=== PATIENT | male | born 1955 | race Caucasian/White ===

== ENCOUNTER 2019-08-11 12:22 | Emergency (ER) | payer OTHER ==
--- OUTSIDE RECORDS SUMMARY | 2019-08-11 12:24 | XMS REPORT | Continuity of Care Document ---
:1955 Author Organization [facility] Address [address] [place] [address] Allergies, Adverse Reactions, Alerts Allergen Type Severity Reaction Last Updated Verified Status No Known Allergies Allergy Unknown November 26, 2014 No Active Medications Medication Status Dose Units Route Sig Qty Days Start End Instructions Date Date Apixaban Discontin 5 ORAL Twice 60 April ued A Day , for Pe 2018 2018 4:33pm Arformoterol Discontin 1 RESPIRAT Twice 120 April Tartrate ued ORY A Day , (INHALAT for 2018 2018 ION) Copd 4:39pm Aspirin Active 81 ORAL Daily Levothyroxine Active 112 ORAL Daily Sodium Metoprolol Active 50 ORAL Once Succinate Daily Pantoprazole Discontin 40 ORAL Before April Sodium ued Breakf , ast 2018 2018 for 4:39pm Gerd Tiotropium Discontinued 1 RESPIRATORY Daily for May 09, [place] (INHALATION) Copd 2018 4:39pm (One-Time) Albuterol Discontinued 3 RESPIRATORY Rt-Every June Sulf/Ipratropium * (INHALATION) Hours As , , Needed as 2012 2014 needed for 1:25pm Shortness Of Breath Methylprednisolone Discontinued 1 ORAL As Directed 11 JuneNovember 25, 2012 1:25pm Pravastatin * Discontinued 20 ORAL Daily May 07, 2019 Salmeterol Discontinued 0 RESPIRATORY Twice A Day June Xinafoate/Fluticason (INHALATION) , , 2012 1:25pm Problems Active Problems Medical Problem Onset Date Status Acute respiratory failure Active CAD (coronary artery disease) Active CHF (congestive heart failure) Active COPD (chronic obstructive pulmonary disease) Active COPD exacerbation Active Congestive heart failure Active Dyspnea Active Embedded foreign body Active Emphysema (subcutaneous) (surgical) resulting from a procedure Active Emphysema of lung Active HLD (hyperlipidemia) Active HTN (hypertension) Active Hypothyroidism Active [id number] Active [id number] Active [id number] Active Influenza A Active Left eye pain Active Left eye pain Active Tobacco abuse Active Inactive/Resolved Problems Medical Problem Onset Date Status Bronchitis Resolved Deep vein thrombosis (DVT) of popliteal vein of right Resolved lowerextremity Pulmonary embolism Resolved Unilateral edema of lower extremity Resolved Procedures Procedure Date Performed Status X-ray of chest, single view May 06, 2019 completed Computed tomography angiography of chest for pulmonary May 06, 2019 completed embolism Computed tomography of abdomen and pelvis with contrast May 08, 2019 completed Relevant Diagnostic Tests and/or Laboratory Data Laboratory Results Test Date/Time Result Interpretation Reference Result Comment Performing Range Site White Blood April 6.8 4.0-12.3 [facility], [address] Count 2018 3:[address] [place] [address] Red Blood Count April 4.49 3.80-5.80 [facility], [address] 2018 3:[address] [place], [place] [id number] Hemoglobin April 14.1 11.7-17.2 [facility] [address] 2018 3:[address] [place] [address] Hematocrit April 42.5 35.0-51.0 [facility], [address] 2018 3:[address] [place], [place] [id number] Mean April 94.7 83-100 [facility], [address] Corpuscular 2018 Volume 3:[address] [place], [place] [id number] Mean April 31.4 26.8-33.4 [facility], [address] Corpuscular 2018 Hemoglobin 3:[address] [place], [place] [id number] Mean April 33.2 30-35 [facility], [address] Corpuscular 2018 Hemoglobin 3:[address] [place] [address] Concent Red Cell April 12.6 12.0-14.0 [facility], [address] Distribution 2018 Width 3:[address] [place] [address]37[address] Platelet Count April 228 175-450 [facility], [address] 2018 3:[address] [place] [address] Mean Platelet April 9.0 9.4-12.6 [facility], [address] Volume 2018 3:[address] [place] [address] Neutrophils (%) April 56.3 44.7-82.4 [facility] [address] (Auto) 2018 3:[address] [place] [address] Immature October 0.1 0.0-0.4 [facility], [address] Granulocyte % 2018 (Auto) 3:[address] [place], [place] [id number] Lymphocytes (%) April 31.0 10.0-50.0 [facility], [address] (Auto) 2018 3:[address] [place], [place] [id number] Monocytes (%) April 9.4 3.9-13.4 [facility], [address] (Auto) 2018 3:[address] [place], [place] [id number] Eosinophils (%) October 2.9 0.0-6.4 [facility], [address] [facility] (Auto) 2018 3:[address] [place], [place] [id number] Basophils (%) October 0.3 0.2-1.2 [facility], [address] [facility] (Auto) 2018 3:[address] [place], [place] [id number] Neutrophils # October 3.82 1.78-5.38 [facility], [address] [facility] (Auto) 2018 3:[address] [place], [place] [id number] Absolute October 0.0 0.0-0.03 [facility], [address] [facility] Immature 2018 Granulocyte 3:[address] [place], [place] [id number] (auto Lymphocytes # October 2.1 1.32-3.57 [facility], [address] (Auto) 2018 3:[address] [place], [place] [id number] Monocytes # October 0.64 0.30-0.82 [facility], [address] [facility] (Auto) 2018 3:[address] [place], [place] [id number] Eosinophils # April 0.20 0.04-0.54 [facility], [address] [facility] (Auto) 2018 3:[address] [place], [place] [id number] Basophils # October 0.02 0.01-0.08 [facility], [address] [facility] (Auto) 2018 3:[address] [place] [address] Nucleated Red October 0 0-0.2 [facility], [address] Blood Cells % 2018 3:[address] [place], [place] [id number] Nucleated Red October 0 0 [facility], [address] [facility] Blood Cells # 2018 3:[address] [place], [place] [id number] D-Dimer April 2833 <500 Results have been [facility], [address] [facility] [address] 2018 broadcasted to 7:30pm patient's [place] [address] location and called to (JAJA). By MARCELLE MG 05/06/19 @2051 Prothrombin April 20.0 10.3-12.[address] Time 2018 LEVEL: 1.5 to 4:56pm 1.9 times normal [place] [address] range of PT Prothromb Time April 1.[address] International 2018 therapeutic range Ratio 4:56pm for patients [place] [address] receiving warfarin (coumadin) therapy: INR is 2.0 to 3.0Recommended range for patients with mechanical prosthetic heart valves: INR is 2.5 to 3.5 Activated April 29.6 22.5-37.0 [facility], [address] [place] [address] Partial 2018 Thromboplast 7:30pm [place] [address] Time Random Glucose April 99 82-115 [facility], [address] [place] [address] 2018 3:46am [place] [address] Blood Urea April 14 8-23 [facility], [address] [place] [address] Nitrogen 2018 3:46am [place] [address] Serum April 282 280-300 [facility], [address] [place] [address] Osmolality 2018 3:46am [place] [address] Creatinine April 0.7 0.70-1.20 [facility], [address] [place] [address] 2018 3:46[place] [address] Glomerular April > 60.00 GFR RESULTS ARE [address] Filtration Rate 2018 REPORTED IN Calc 3:46am mL/min/1.73m2.Nor [place] [address] mal GFR: >60mL/minModerate ly decreased GFR: 30-59 mL/minSeverely decreased GFR: 15-29 mL/minKidney Failure (or Dialysis): <15 mL/minThe calculated eGFR is not valid for patients younger than 18 years or older than 75 years. BUN/Creatinine April 20.0 12-20 [facility], [facility] 7TH Ratio 2018 3:46am [place] [id number] Sodium Level April 141 135-145 [facility], [address] [place] [address] 2018 3:46am [place] [id number] Potassium Level April 3.5 3.5-5.2 [facility], [address] [place] [address] 2018 3:46am [place] [address] Chloride Level April 102 98-108 [facility], [address] [facility] 2018 3:[address] [place] [address] Carbon Dioxide April 30 21-32 [facility], [address] [facility] Level 2018 3:[address] [place] [address] Anion Gap April 12.5 12-20 [facility], [address] [facility] 2018 3:[address] [place] [address] Calcium Level April 9.0 8.8-10.2 [facility], [address] [facility] 2018 3:[address] [place] [address] Magnesium Level April 2.1 1.6-2.4 [facility], [address] [facility] 2018 7:43pm [facility] [address] Total Protein April 6.3 6.6-8.7 [facility], [address] [facility] 2018 3:[address] [place], [place] [id number] Albumin April 3.5 3.5-5.2 [facility], [address] [facility] 2018 3:[address] [place], [place] [id number] Globulin April 2.8 [facility], [address] [facility] 2018 3:[address] [place], [place] [id number] Albumin/Globuli April 1.3 >1.0 [facility], [address] [facility] n Ratio 2018 3:[address] [place], [place] [id number] Total Bilirubin April 0.4 0.0-1.2 [facility], [address] [facility] 2018 3:[address] [place], [place] [id number] Aspartate Amino April 18 15-40 [facility], [address] [facility] Transf 2018 (AST/SGOT) 3:[address] [place] [address] Alanine April 20 0-41 [facility], [address] [facility] Aminotransferas 2018 e (ALT/SGPT) 3:[address] [place] [address] JJ-Hqf-N-Type April 206 0-125 [facility], [address] [facility] Natriuretic 2018 Peptide 3:[address] [place] [address]46 Prostate April 1.40 0.0-4.00 [facility], [address] [facility] Specific 2018 Antigen Total 9:30[place] [id number] Total Alkaline April 74 40-130 [facility], [address] [facility] Phosphatase 2018 3:[address] [place], [place] [id number] Cholesterol April 155 150-200 [facility], [address] [facility] Level 2018 3:[address] [place], [place] [id number] Triglycerides October 124 <150 [facility], [address] [facility] Level 2018 3:34am [facility] [address] HDL Cholesterol April 41 >55 HDL EXPECTED [facility], [address] [place] [address] 2018 VALUES:FEMALES: 3:34am >65 mg/dL NO [facility] [address] RISK 45-65 mg/dL MODERATE RISK <45 mg/dL HIGH RISKMALES: >55 mg/dL NO RISK 35-55 mg/dL MODERATE RISK <35 mg/dL HIGH RISK LDL Cholesterol April 95 <100 LDL Expected [address] 2018 Values:Optimal 3:34am <100 mg/dLNear [facility] [address] optimal/above optimal 100-129 mg/dLBorderline high 130-159 mg/dLHigh 160-189 mg/dLVery high >190 mg/dL Coronary Heart April 3.[address] Disease Risk 2018 NATIONAL Ratio 3:34am CHOLESTEROL [facility] [address] GUIDELINES NATIONAL HE[facility], [facility] (N[facility]) guidelines for classificaton, testing and management of cholesterol levels in adults over 20 years of age. This new classification creates three categories of risk for coronary heart disease, regardless of age or sex, according to total and LDL cholesterols levels: Based on total cholesterol levelDesirable <200 mg/dlBorderline-h igh 200-239 mg/dlHigh >=240 mg/dl Based on cholesterol ratioCHD RISK CHOL/HDL RATIO MALE FEMALE0.5 x Average 3.4 3.31.0 x Average 5.0 4.42.0 x Average 9.6 7.13.0 x Average 13.5 11.0 Thyroid April 4.39 0.36-3.[address] Stimulating 2018 Hormone (TSH) 3:34am [facility] [address] CA 19-9 Antigen April 27 0-35 [facility] A# [id number], [address] [facility], [address] 2018 Electrochemilumin 9:53[facility] [address] Immunoassay(ECLIA )Values obtained with different assay methods or kits cannotbe used interchangeably. Results cannot be interpreted asabsolute evidence of the presence or absence of malignantdisease. Performed at: [employer] [facility] [address] [place], [place] [id number] Director: Nino Parisi MD, Phone: [phone] Creatine Kinase April-200 [facility]2018 7:43pm [facility] [address] Troponin I April < 0.30 0.0-0.5 Published [facility] 2018 clinical studies 7:43pm have shown [place] [address] elevations of cTnI in patients with myocardial injury, as seen in unstable angina pectoris, cardiac contusions, and heart transplants. Elevations have also been seen in patients with rhabdomyolysis and polymyositis.Elev ated troponin levels point to myocardial injury, but are not necessarily indicative of an ischemic mechanism. The term SC should be used when there is evidence of cardiac damage, as detected by marker proteins in a clinical setting consistent with myocardial ischemia. If the clinical circumstance suggests that an ischemic mechanism is unlikely, other causes of cardiac injury should be considered.For diagnostic purposes, the results should always be assessed in conjunction with the patient's medical history, clinical examination and other findings. Creatine Kinase April 2.6 0.0-3.6 DIAGNOSTIC 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 LUNGS: Lungs are hyperinflated. No consolidations. Central pulmonary vascular prominence. Mild bilateral central bronchial wall thickening. PLEURA: No pleural effusion or pneumothorax. HEART AND MEDIASTINUM: The cardiomediastinal silhouette is unremarkable. BONES AND SOFT TISSUES: No acute osseous lesion. Soft tissues are unremarkable. Degenerative changes in the spine. UPPER ABDOMEN: No free air under the diaphragm. IMPRESSION: Pulmonary vascular congestion. Pulmonary findings of emphysema and mild bronchitis. 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 Thin section reconstructions were obtained with special concentration on the pulmonary arteries. Coronal and sagittal reformations were obtained. Pulmonary embolism protocol was performed. IV CONTRAST: 100 mL of Isovue 370 COMPLICATIONS: None RADIATION DOSE: Total DLP: 411 mGy*cm Estimated effective dose: (DLP x 0.014 x size factor) mSv CTDIvol has been reviewed. It is below the limits set by the Radiation Protocol Committee (RPC). Dose modulation, iterative reconstruction, and/or weight based adjustment of the mA/kV was utilized to reduce the radiation dose to as low as reasonably achievable. FINDINGS: LINES/ TUBES: None. LUNGS AND AIRWAYS: Acute nonocclusive filling defect in the distal aspect of the right lower lobar pulmonary artery saddling the bifurcation of right basilar segmental pulmonary arterial branches. Large right apical bulla and additional blebs. Upper lobe predominant centrilobular emphysematous changes. Left apical scarring. Focal scarring/atelectasis in the medial aspect of the right middle lobe. Mild central airway thickening. An 8 mm groundglass opacity/nodule in the right middle lobe (series 3 image 49). PLEURA: The pleural spaces are clear. HEART AND MEDIASTINUM: The thyroid gland is normal. No mediastinal, hilar or axillary lymphadenopathy. The heart is normal in size. There is no pericardial effusion. Left main, anterior descending, and circumflex coronary artery calcifications. Soft and calcific atherosclerotic plaques along the aortic arch and descending thoracic aorta and upper abdominal aorta, with nonstenotic atherosclerotic calcifications in the major arterial branches. Main pulmonary artery measures 2.5 cm in diameter and the ascending aorta measures 3.8 cm. UPPER ABDOMEN: Small sliding hiatal hernia. A 3 cm round hypodensity in the right adrenal gland, internal density measures -7 Hounsfield units, is consistent with a either a benign adrenal cyst or a benign lipid rich adrenal adenoma. BONES: Degenerative changes in the spine. The visualized bony thorax is within normal limits. SOFT TISSUES: Unremarkable. IMPRESSION: 1. Nonocclusive pulmonary embolus in the distal aspect of the right lower lobar pulmonary artery saddling the bifurcation of right basilar segmental pulmonary arterial branches. 2. An indeterminate 8 mm ground glass nodule in the right middle lobe could be due to infection/inflammation however adenomatous hyperplasia/neoplasia also a consideration. Recommend follow-up chest CT in 3 months. 3. Left main, anterior descending, and circumflex coronary artery calcific atherosclerosis. 4. Findings of pulmonary emphysema and bronchitis with right apical bulla and blebs. Findings discussed with Dr. Mart at 9:57 PM on 05/06/[address] Miller via telephone. Signed by: Harry Miller DO on 05/06/2019 10:10 PM Transcribed By: [employer] SYSTEM[employer] SIGNED <electronically signed by Harry Miller DO> 09 12 Harry Miller DO Health Concerns No known health concerns documented Advance Directives Advance Directive Response Recorded Date/Time Advance Directives No November 26, 2014 2:07pm Advance Directive on File No May 07, 2019 12:21am Directive to Physicians/Living Will No November 26, 2014 2:07pm Health Care Proxy No November 26, 2014 2:07pm Organ Donor No November 26, 2014 2:07pm Medical Power of Tetryl Screen Operator No November 26, 2014 2:07pm Patient/Family Given Education Material R/T Yes May 07, 2019 12:21am Directives? Chief Complaint and Reason for Visit Chief Complaint BRONCHITIS,COPD EXACERBATION,PE,LOWER LED EDEMA Reason for Visit COPD exacerbation CAD (coronary artery disease) Acute respiratory failure COPD (chronic obstructive pulmonary disease) CHF (congestive heart failure) CAD (coronary artery disease) HLD (hyperlipidemia) HTN (hypertension) Hypothyroidism Emphysema (subcutaneous) (surgical) resulting from a procedure CHF (congestive heart failure) COPD (chronic obstructive pulmonary disease) Tobacco abuse Emphysema of lung Encounters Encounter Location(s) Arrival/Admit Date Discharge/Depart Date Provider(s) Discharged [place] May 06, 2019 May 09, 2019 [facility] 10:38pm 6:16pm Ctr Recent Diagnosis Onset Date COPD exacerbation CAD (coronary artery disease) Acute respiratory failure COPD (chronic obstructive pulmonary disease) CHF (congestive heart failure) CAD (coronary artery disease) HLD (hyperlipidemia) HTN (hypertension) Hypothyroidism Emphysema (subcutaneous) (surgical) resulting from a procedure CHF (congestive heart failure) COPD (chronic obstructive pulmonary disease) Tobacco abuse Emphysema of lung Assessments Diagnosis Onset Date Resolution Status COPD exacerbation Active CAD (coronary artery disease) Active Acute respiratory failure Active COPD (chronic obstructive pulmonary disease) Active CHF (congestive heart failure) Active CAD (coronary artery disease) Active HLD (hyperlipidemia) Active HTN (hypertension) Active Hypothyroidism Active Emphysema (subcutaneous) (surgical) resulting from a Active procedure CHF (congestive heart failure) Active COPD (chronic obstructive pulmonary disease) Active Tobacco abuse Active Emphysema of lung Active Functional Status No Functional Status information available Goals No Goals Information Available Immunizations No Immunization Information Available Mental Status No Mental Status Information Available Medical Equipment No Medical Equipment Information available Insurance Providers Guarantor Lyssa Mitchell Address [address] [address] Contact Info. Home Phone: Payer Policy Id Coverage Id Subscriber's Subscriber Effective Expiration Name Id Date Date Visn 16 [id number] Lyssa Mitchell [id number] Consolidated A Fee Unit Plan of Treatment Please call and set up and outpatient follow-up appointment with your pcp and or pulmonology for radiological finding: An indeterminate 8 mm ground glass nodule in the right middle lobe could be due to infection/inflammation however adenomatous hyperplasia/neoplasia also a consideration. Recommend follow-up chest CT in 3 months. Future Tests Future scheduled test information is unavailable Pending Tests Pending diagnostic test information is unavailable Future Visits Future appointment information is unavailable Referrals to Other Providers Referral information is unavailable Future Procedures Future procedure information is unavailable Future Medications Future medication information is unavailable Patient Instructions Arformoterol nebulizer solution Chronic Obstructive Pulmonary Disease Exacerbation, [id number] Coronary Artery Disease, Male Tiotropium inhalation powder Pantoprazole tablets Apixaban oral tablets Deep Vein Thrombosis Social History Smoking Status Status Date of Observation Ex-smoker (finding) May 07, 2019 12:21am Observation Status Observation Response Date of Response Hx Physical Abuse No May 07, 2019 12:48am Assigned Sex Male Vital Signs Vital Reading Result Collection Date/Time Hospital Discharge Instructions Additional Instructions Instructions Physician Documentation [place] follow up instructions * If you have any questions or concerns, please contact [phone] and ask for the hospitalist on duty. If you are having a medical emergency, please report to the nearest emergency room in your area. * Access your patient portal or follow up with your PCP regarding any procedures or tests that have not yet been resulted. Follow up with: cook ice cream, PCP, mill hand Follow up appointment in: 7 days Activity on discharge: fall precautions Diet on discharge: cardiac Condition on discharge: stable
[2019-08-11 13:47] LABS: Basophils % 0.2 % (0-1.3); Hematocrit 46.4 % (39.6-49.0); Lymphocytes % 26.2 % (15.3-44.8); MPV 7.4 fL (7.6-11.3); RBC Red Blood Cell Count 4.97 M/uL (4.33-5.43)
[2019-08-11 14:06] LABS: BUN Blood Urea Nitrogen 28 mg/dL (7-18); Bicarbonate 32 mmol/L (21-32); Glucose Level 91 mg/dL (74-106); Potassium 4.1 mmol/L (3.5-5.1); Sodium Level 141 mmol/L (136-145); Troponin (Emerg Dept Use Only) < 0.02 ng/mL (0.0-0.045)
--- NOTE | 2019-08-11 14:11 | EDPHYS ---
Physician Documentation [facility] Name: Valdez Mandujano Age: 63 yrs Sex: Male : 1955 Arrival Date: 08/11/2019 Time: 12:25 Bed 9 Private MD: ED Physician Vamsi Mtz HPI: 08/11 12:48 This 63 yrs old Male presents to ER via Ambulatory with complaints of High jmm Blood Pressure. 12:48 The patient has elevated blood pressure [facility] Onset: The jmm symptoms/episode began/occurred at an unknown time. Modifying factors: The symptoms are aggravated by. This is a 63 year old male with a history of dvt that presents to the ED after [facility] revealed his [facility] to be elevated. Patient has no complaints of CP, PERSON, abdominal pain, shortness of breath. The patient currently takes metoprolol and was just prescribed a 2nd BP medication. . Historical: - Allergies: 12:33 No Known Allergies; sg - Home Meds: 12:33 Metoprolol Tartrate Oral [Active]; Plavix Oral [Active]; sg - PMHx: 12:33 DVT; sg - Immunization history:: Adult Immunizations up to date. - Coronavirus screen:: The patient has NOT traveled to [place], [place], or [place] in the past 14 days. The patient has NOT had contact with known/suspected case of Coronavirus?. - Social history:: Smoking status: Patient denies any tobacco usage or history of. - Ebola Screening: : Patient negative for fever greater than or equal to 101.5 degrees Fahrenheit, and additional compatible Ebola Virus Disease symptoms Patient denies exposure to infectious person Patient denies travel to an Ebola-affected area in the 21 days before illness onset No symptoms or risks identified at this time. ROS: 12:48 Constitutional: Negative for fever, chills, and weight loss, Cardiovascular: Negative jmm for chest pain, palpitations, and edema, Respiratory: Negative for shortness of breath, cough, wheezing, and pleuritic chest pain, Abdomen/GI: Negative for abdominal pain, nausea, vomiting, diarrhea, and constipation, Back: Negative for injury and pain, MS/Extremity: Negative for injury and deformity, Neuro: Negative for headache, weakness, numbness, tingling, and seizure. 12:48 All other systems are negative. Exam: 12:48 Constitutional: This is a well developed, well nourished patient who is awake, alert, jmm and in no acute distress. Head/Face: atraumatic. Eyes: EOMI, no conjunctival erythema appreciated ENT: Moist Mucus Membranes Neck: Trachea midline, Supple Chest/axilla: Normal chest wall appearance and motion. Cardiovascular: Regular rate and rhythm. No edema appreciated Respiratory: Normal respirations, no respiratory distress appreciated Abdomen/GI: Non distended, soft Back: Normal ROM Skin: General appearance color normal MS/ Extremity: Moves all extremities, no obvious deformities appreciated, no edema noted to the lower extremities Neuro: Awake and alert, normal gait Psych: Behavior is normal, Mood is normal, Patient is cooperative and pleasant Vital Signs: 12:30 BP 161 / 98; Pulse 74; Resp 17; Temp 98.2; Pulse Ox 100% on R/A; Pain 0/10; sg 13:30 BP 171 / 92; Pulse 72; Resp 14; Pulse Ox 100% on R/A; Pain 0/10; ls4 14:20 BP 168 / 84; Pulse 71; Resp 14; Temp 98.1; Pulse Ox 100% on R/A; Pain 0/10; ls4 MDM: 12:41 Patient medically screened. [facility] 14:08 Data reviewed: vital signs, nurses notes. Counseling: I had a detailed discussion with [facility] the patient and/or guardian regarding: the historical points, exam findings, and any diagnostic results supporting the discharge/admit diagnosis, lab results, the need for outpatient follow up, to return to the emergency department if symptoms worsen or persist or if there are any questions or concerns that arise at home. ED course: Patient is asymptomatic. Labs WNL. Advised to follow up with pcp for reevaluation. . 08/11 12:42 Order name: CBC with Diff; Complete Time: 14:02 [facility] 08/11 12:42 Order name: BMP; Complete Time: 14:07 [facility] 08/11 12:42 Order name: Troponin (emerg Dept Use Only); Complete Time: 14:07 [facility] 08/11 12:42 Order name: EKG - Nurse/Tech; Complete Time: 13:08 [facility] 08/11 12:42 Order name: Urine Dipstick-Ancillary (obtain specimen); Complete Time: 13:09 [facility] Administered Medications: No medications were administered Disposition: 14:35 Co-signature as Attending Physician, Vamsi Mtz MD. rn Disposition: 08/11/19 14:10 Discharged to Home. Impression: Elevated Blood Pressure. - Condition is Stable. - Discharge Instructions: Hypertension. - Medication Reconciliation Form, Thank You Letter, Antibiotic Education, Prescription Opioid Use form. - Follow up: Private Physician; When: 2 - 3 days; Reason: Recheck today's complaints, Continuance of care, Re-evaluation by your physician. Signatures: Dispatcher [employer] EDManohar Arrington RN RN Joe Heath PA PA jmm Nieto, Roman, MD MD rn Stewart, Lisa, RN RN ls4 Corrections: (The following items were deleted from the chart) 14:25 14:10 08/11/2019 14:10 Discharged to Home. Impression: Elevated Blood Pressure. ls4 Condition is Stable. Forms are Medication Reconciliation Form, Thank You Letter, Antibiotic Education, Prescription Opioid Use. Follow up: Private Physician; When: 2 - 3 days; Reason: Recheck today's complaints, Continuance of care, Re-evaluation by your physician. dwaine
--- NOTE | 2019-08-11 14:11 | ER ---
Nurse's Notes [facility] Name: Valdez Mandujano Age: 63 yrs Sex: Male : 1955 Arrival Date: 08/11/2019 Time: 12:25 Bed 9 Private MD: Diagnosis: Elevated Blood Pressure Presentation: 08/11 12:30 Presenting complaint: Patient states: [facility], when they sg said my BP was too high and I had to come to the ER for evaluation. Transition of care: patient was not received from another setting of care. Onset of symptoms was August 11, 2019. Risk Assessment: Do you want to hurt yourself or someone else? Patient reports no desire to harm self or others. Initial Sepsis Screen: Does the patient meet any 2 criteria? No. Patient's initial sepsis screen is negative. Does the patient have a suspected source of infection? No. Patient's initial sepsis screen is negative. Care prior to arrival: None. 12:30 Method Of Arrival: Ambulatory sg 12:30 Acuity: REVA 3 sg Triage Assessment: 12:30 General: Appears in no apparent distress. comfortable, Behavior is calm, cooperative. ls4 Pain: Denies pain. Neuro: No deficits noted. Cardiovascular: No deficits noted. Respiratory: No deficits noted. GI: No deficits noted. : No deficits noted. Derm: No deficits noted. Musculoskeletal: No deficits noted. Historical: - Allergies: 12:33 No Known Allergies; sg - Home Meds: 12:33 Metoprolol Tartrate Oral [Active]; Plavix Oral [Active]; sg - PMHx: 12:33 DVT; sg - Immunization history:: Adult Immunizations up to date. - Coronavirus screen:: The patient has NOT traveled to [place], [place], or [place] in the past 14 days. The patient has NOT had contact with known/suspected case of Coronavirus?. - Social history:: Smoking status: Patient denies any tobacco usage or history of. - Ebola Screening: : Patient negative for fever greater than or equal to 101.5 degrees Fahrenheit, and additional compatible Ebola Virus Disease symptoms Patient denies exposure to infectious person Patient denies travel to an Ebola-affected area in the 21 days before illness onset No symptoms or risks identified at this time. Screenin:34 Abuse screen: Denies threats or abuse. Denies injuries from another. Nutritional ls4 screening: No deficits noted. Tuberculosis screening: No symptoms or risk factors identified. Fall Risk None identified. Assessment: 12:35 General: Appears in no apparent distress. Pain: Denies pain. Neuro: No deficits noted. ls4 Cardiovascular: No deficits noted. Respiratory: No deficits noted. GI: No deficits noted. : No deficits noted. Derm: No deficits noted. Musculoskeletal: No deficits noted. Vital Signs: 12:30 BP 161 / 98; Pulse 74; Resp 17; Temp 98.2; Pulse Ox 100% on R/A; Pain 0/10; sg 13:30 BP 171 / 92; Pulse 72; Resp 14; Pulse Ox 100% on R/A; Pain 0/10; ls4 14:20 BP 168 / 84; Pulse 71; Resp 14; Temp 98.1; Pulse Ox 100% on R/A; Pain 0/10; ls4 ED Course: 12:25 Patient arrived in ED. mr 12:32 Triage completed. 12:32 Tati Sanchez, TRINI is Primary Nurse. ls4 12:32 Joe Yanez PA is PHCP. [facility] 12:32 Vamsi Mtz MD is Attending Physician. [facility] 12:34 Arm band placed on. 12:34 Patient has correct armband on for positive identification. Bed in low position. Call ls4 light in reach. Side rails up X 1. Pulse ox on. NIBP on. Verbal reassurance given. 12:34 No provider procedures requiring assistance completed. ls4 14:20 Patient did not have IV access during this emergency room visit. ls4 Administered Medications: No medications were administered Outcome: 14:10 Discharge ordered by . [facility] 14:20 Discharged to home ambulatory. ls4 14:20 Condition: stable 14:20 Discharge instructions given to patient, Instructed on discharge instructions, follow up and referral plans. Demonstrated understanding of instructions, follow-up care. 14:25 Patient left the ED. ls4 Signatures: Manohar Salazar, RN RN Joe Yanez PA PA [facility] Magy Marcus mr Tati Sanchez RN RN ls4
[2019-08-11 14:30] VITALS: BP 161/98; TEMP 98.2; O2SAT 100
--- NOTE | 2019-08-13 07:52 | EKG ---
Test Date: 2019-08-11 Test Time: 12:58:47 Knitting Teacher: PATTIE MEASUREMENT RESULTS: Intervals: Rate: 63 TN: 142 QRSD: 126 QT: 422 QTc: 431 Concrete: P: 79 TN: 142 QRS: 72 T: 68 INTERPRETIVE STATEMENTS: Normal sinus rhythm Right bundle branch block Abnormal ECG No previous ECG available for comparison Electronically Signed On 08-13-19 07:50:07 [employer] by Cullen Naranjo
== END 2019-08-11 14:25 | disposition home or self-care (01) ==
LOC: ER 12:22
DX: I10 Essential (primary) hypertension (principal)
CPT/HCPCS: 36415; 80048; 84484; 85025; 93005; 99283